=== PATIENT | male | born 1955 | race African-American/Black ===

== ENCOUNTER 2022-06-25 02:37 | Emergency (ER) | payer OTHER, BC, MEDICARE ==
[2022-06-25] MEDS ORDERED: Acetaminophen 500 MG Tab PO ONE (03:09)
== END 2022-06-25 04:19 | disposition home or self-care (01) ==
LOC: MW.ED 02:37
DX: T33.522A Superficial frostbite of left hand, initial encounter (principal); T33.521A Superficial frostbite of right hand, initial encounter; E11.9 Type 2 diabetes mellitus without complications
CPT/HCPCS: 99283; A9270

== ENCOUNTER 2022-06-25 16:16 | Emergency (ER) | payer OTHER, BC, MEDICARE | END 2022-06-25 17:23 | disposition home or self-care (01) | LOC: MW.ED 16:16 | DX: T33.521A Superficial frostbite of right hand, initial encounter (principal); T33.522A Superficial frostbite of left hand, initial encounter; E11.9 Type 2 diabetes mellitus without complications | CPT/HCPCS: 99283 ==